=== PATIENT | male | born 1955 | race Caucasian/White ===

== ENCOUNTER 2024-02-17 02:50 | Inpatient (IN) | payer OTHER ==
[~2024-02-17] VITALS: Ht 172.7 cm; Wt 92.5 kg
[2024-02-17] VITALS (10 sets, daily range): BP systolic 130–162; PULSE 45–48; RESP 14–18; TEMP 96.6–98.5; O2SAT 94–98
[2024-02-17 04:00] LABS: BASOPHILS % (AUTO) 0.4 % (0.0-2.0); EOSINOPHILS # (AUTO) 0.4 K/uL (0.0-0.4); EOSINOPHILS % (AUTO) 3.8 % (0.0-4.0); HEMATOCRIT 43.3 % (36-54); HEMOGLOBIN 14.4 g/dL (14.0-18.0); LYMPHOCYTES # (AUTO) 2.5 K/uL (1.0-5.5); LYMPHOCYTES % (AUTO) 23.5 % (20.5-51.5); MEAN CORPUSCULAR HEMOGLOBIN 30 pg (27-31); MEAN CORPUSCULAR HGB CONC 33 % (32-36); MEAN CORPUSCULAR VOLUME 89 fL (79.0-98.0); MONOCYTES # (AUTO) 0.5 K/uL (0.0-1.0); MONOCYTES % (AUTO) 4.9 % (1.7-9.3); NEUTROPHILS # (AUTO) 7.1 K/uL (1.8-7.7); NEUTROPHILS % (AUTO) 67.4 % (40.0-70.0); PLATELET COUNT (AUTO) 224 K/uL (130-430); RED BLOOD CELL COUNT(AUTO) 4.86 MIL/uL (4.2-6.2); WHITE BLOOD COUNT (AUTO) 10.5 K/uL (4.8-10.8)
[2024-02-17 04:16] LABS: ALANINE AMINOTRANSFERASE 17 U/L (12-78); ALBUMIN 3.7 g/dL (3.4-4.8); ANION GAP 11 (5-15); ASPARTATE AMINOTRANSFERASE 18 U/L (10-37); BILIRUBIN,DIRECT 0.1 mg/dL (0.0-0.3); CALCIUM 8.9 mg/dL (8.4-11.0); CARBON DIOXIDE 25 mmol/L (23-29); CHLORIDE 104 mmol/L (98-107); CREATININE 1.37 mg/dL (0.55-1.30); GFR AFRICAN AMERICAN 66 mL/min (>90); GLUCOSE 151 mg/dL (74-106); POTASSIUM 4.3 mmol/L (3.5-5.1); SODIUM SERUM 140 mmol/L (136-145); TOTAL BILIRUBIN 0.4 mg/dL (0.0-1.0); TOTAL PROTEIN, SERUM 7.8 g/dL (6.4-8.3); UREA NITROGEN, BLOOD 21 mg/dL (8-21)
[2024-02-17 04:21] LABS: GFR NON AFRICAN-AMERICAN 55 mL/min (>90)
[2024-02-17] MEDS ORDERED: LEVE1000 PO (06:01)
[2024-02-17] MEDS ORDERED: LIP40 PO (06:01)
[2024-02-17] MEDS ORDERED: NIFE-129 PO (06:01)
[2024-02-17] MEDS ORDERED: LOSA-415 PO (06:01)
[2024-02-17] MEDS ORDERED: CLOP75TA32 PO (06:01)
[2024-02-17] MEDS ORDERED: METF-379 PO (06:01)
[2024-02-17 08:49] LABS: CHOLESTEROL 106 mg/dL (<200); HDL CHOLESTEROL 47 mg/dL (>45); TRIGLYCERIDES 44 mg/dL (30-150)
[2024-02-17] MEDS: CLOPIDOGREL BISULFATE 75 MG TABLET PO ONE (09:54)
[2024-02-17] MEDS: levETIRAcetam 500 MG TABLET PO ONE (09:55)
[2024-02-17] MEDS: metFORMIN HCL 500 MG TABLET PO SCH (09:55)
[2024-02-17] MEDS: ATORVASTATIN 20 MG TABLET PO ONE (09:55)
[2024-02-17] MEDS: LOSARTAN POTASSIUM 50 MG TABLET (COZAAR) PO ONE (09:57)
[2024-02-17] MEDS: THEOPHYLLINE ANHYDROUS 80 MG/15 ML UDC PO SCH (10:27)
[2024-02-17] MEDS: levETIRAcetam 500 MG TABLET PO SCH (22:00)
[2024-02-18] VITALS (16 sets, daily range): BP systolic 153–186; PULSE 43–108; RESP 12–48; TEMP 97.4–98.6; O2SAT 89–100
[2024-02-18] MEDS: hydrALAZINE HCL 20 MG/ML VIAL IVP ONE ×2 (00:27→21:47)
[2024-02-18] MEDS: CLOPIDOGREL BISULFATE 75 MG TABLET PO SCH (08:45)
[2024-02-18] MEDS: ATORVASTATIN 20 MG TABLET PO SCH (08:46)
[2024-02-18] MEDS: LOSARTAN POTASSIUM 50 MG TABLET (COZAAR) PO SCH (08:48)
[2024-02-18] MEDS: hydrALAZINE HCL 25 MG TABLET PO SCH (09:00)
[2024-02-18] MEDS: THEOPHYLLINE ANHYDROUS 80 MG/15 ML UDC PO SCH (10:35)
[2024-02-18] MEDS: hydrALAZINE HCL 25 MG TABLET PO ONE (14:09)
[2024-02-18] MEDS: hydrALAZINE HCL 20 MG/ML VIAL ONE (20:31)
[2024-02-18] MEDS ORDERED: levETIRAcetam 1,000 MG in NS 100 ML IV SCH (21:00)
[2024-02-18] MEDS ORDERED: ENALAPRILAT DIHYDRATE 1.25 MG/ML VIAL IVP PRN (21:00)
[2024-02-18] MEDS: LORazepam 2 MG/ML VIAL IVP ONE (21:15)
[2024-02-18] MEDS ORDERED: iohexoL 350 mgI/mL, 100 ML INFUS..BTL IV ONE (21:16)
[2024-02-18 21:39] LABS: BASOPHILS # (AUTO) 0.4 K/uL (0.0-0.2); EOSINOPHILS # (AUTO) 0.1 K/uL (0.0-0.4); EOSINOPHILS % (AUTO) 0.7 % (0.0-4.0); HEMATOCRIT 44.8 % (36-54); HEMOGLOBIN 15.1 g/dL (14.0-18.0); LYMPHOCYTES % (AUTO) 14.2 % (20.5-51.5); MEAN CORPUSCULAR HEMOGLOBIN 30 pg (27-31); MEAN CORPUSCULAR HGB CONC 34 % (32-36); MEAN CORPUSCULAR VOLUME 88 fL (79.0-98.0); MONOCYTES # (AUTO) 0.5 K/uL (0.0-1.0); MONOCYTES % (AUTO) 3.7 % (1.7-9.3); NEUTROPHILS # (AUTO) 11.3 K/uL (1.8-7.7); NEUTROPHILS % (AUTO) 78.4 % (40.0-70.0); PLATELET COUNT (AUTO) 254 K/uL (130-430); RED BLOOD CELL COUNT(AUTO) 5.07 MIL/uL (4.2-6.2); RED CELL DISTRIBUTION WIDTH 14.1 % (9.0-15.0); WHITE BLOOD COUNT (AUTO) 14.4 K/uL (4.8-10.8)
[2024-02-18] MEDS ORDERED: levETIRAcetam 4,500 MG in NS 100 ML IV ONE (21:45)
[2024-02-18] MEDS: LORazepam 2 MG/ML VIAL ONE (21:48)
[2024-02-18 21:58] LABS: CALCIUM 9.1 mg/dL (8.4-11.0); CREATININE 1.08 mg/dL (0.55-1.30); POTASSIUM 3.5 mmol/L (3.5-5.1)
[2024-02-18] MEDS: PIPERACILLIN/TAZOBACTAM 3.375 GM/VIAL (ZOSYN) IV ONE (22:01)
[2024-02-18 22:14] LABS: PROTHROMBIN TIME 10.8 SECS (9.5-12.5)
[2024-02-19] VITALS (33 sets, daily range): BP systolic 133–200; PULSE 42–99; RESP 10–38; TEMP 98.1–100.6; O2SAT 90–98
[2024-02-19] MEDS ORDERED: COMMUNICATION ORDER XX ONE (01:00)
[2024-02-19] MEDS: hydrALAZINE HCL 20 MG/ML VIAL IVP PRN (01:03)
[2024-02-19] MEDS: NACL 0.9% 1,000 ML IV SCH (01:32)
[2024-02-19] MEDS: levETIRAcetam 1,000 MG IV BAG 100 ML IV SCH (01:33)
[2024-02-19] MEDS: ATROPINE SULFATE 1 MG/10 ML SYRINGE IVP ONE (01:34)
[2024-02-19] MEDS: ONDANSETRON HCL 4 MG/2 ML VIAL IVP PRN (04:37)
[2024-02-19] MEDS ORDERED: ENALAPRILAT DIHYDRATE 1.25 MG/ML VIAL IVP PRN (05:45)
[2024-02-19 06:50] LABS: BASOPHILS % (AUTO) 0.1 % (0.0-2.0); HEMATOCRIT 44.1 % (36-54); HEMOGLOBIN 14.6 g/dL (14.0-18.0); LYMPHOCYTES # (AUTO) 0.2 K/uL (1.0-5.5); LYMPHOCYTES % (AUTO) 1.5 % (20.5-51.5); MEAN CORPUSCULAR HEMOGLOBIN 29 pg (27-31); MEAN CORPUSCULAR HGB CONC 33 % (32-36); MEAN CORPUSCULAR VOLUME 89 fL (79.0-98.0); MONOCYTES # (AUTO) 0.4 K/uL (0.0-1.0); MONOCYTES % (AUTO) 2.4 % (1.7-9.3); NEUTROPHILS # (AUTO) 14.3 K/uL (1.8-7.7); PLATELET COUNT (AUTO) 256 K/uL (130-430); RED BLOOD CELL COUNT(AUTO) 4.96 MIL/uL (4.2-6.2); RED CELL DISTRIBUTION WIDTH 14.3 % (9.0-15.0); WHITE BLOOD COUNT (AUTO) 14.9 K/uL (4.8-10.8)
[2024-02-19 07:22] LABS: ALBUMIN 3.6 g/dL (3.4-4.8); CREATININE 1.26 mg/dL (0.55-1.30); POTASSIUM 3.9 mmol/L (3.5-5.1); TOTAL BILIRUBIN 0.4 mg/dL (0.0-1.0); TOTAL PROTEIN, SERUM 7.6 g/dL (6.4-8.3)
[2024-02-19] MEDS: NIFEdipine 30 MG TAB.ER.24 PO SCH (09:29)
[2024-02-19] MEDS: APIXABAN 2.5 MG TABLET PO SCH (10:00)
[2024-02-19 12:03] LABS: BILIRUBIN,URINE NEGATIVE (NEGATIVE); BLOOD, URINE 1+ (NEGATIVE); CLARITY/URINE CLEAR (CLEAR); COLOR,URINE YELLOW (YELLOW); GLUCOSE,URINE TRACE (NEGATIVE); KETONES,URINE 1+ (NEGATIVE); LEUKOCYTE ESTERASE ,URINE NEGATIVE (NEGATIVE); NITRITE, URINE NEGATIVE (NEGATIVE); PROTEIN URINE 2+ (NEGATIVE); UROBILINOGEN,URINE 0.2 (0.2-1.0)
[2024-02-19 12:30] LABS: BACTERIA,URINE None Seen /HPF (None Seen); WBC,URINE 0-3 /HPF (0-3)
[2024-02-19] MEDS ORDERED: *LOVENOX 1MG/KG Q12H/PHARMACY XX SCH (14:15)
[2024-02-19] MEDS: ENOXAPARIN SODIUM 100 MG/ML SYRINGE SUBCUT ONE (17:34)
[2024-02-19] MEDS: INSULIN REGULAR, HUMAN 100 UNITS/ML, 3 ML VIAL (humuLIN R) SUBCUT SCH (17:35)
[2024-02-19] MEDS: levETIRAcetam 500 MG in NS 100 ML IV SCH (20:23)
[2024-02-19] MEDS: DOCUSATE SODIUM 100 MG CAPSULE PO SCH (20:28)
[2024-02-19] MEDS ORDERED: levETIRAcetam 1,000 MG in NS 100 ML IV SCH (21:00)
[2024-02-19] MEDS: ACETAMINOPHEN 650 MG SUPP.RECT RC PRN (21:13)
[2024-02-19] MEDS: PIPERACILLIN/TAZO 4.5 GM in D5W 100 ML IV SCH (21:14)
[2024-02-19] MEDS: PIPERACILLIN/TAZOBACTAM 4.5 GM/VIAL (ZOSYN) IV ONE (21:14)
[2024-02-19] MEDS: METOCLOPRAMIDE HCL 10 MG/2 ML VIAL IVP SCH (22:35)
[2024-02-20] MEDS ORDERED: ENOXAPARIN SODIUM 100 MG/ML SYRINGE SUBCUT SCH (05:00)
== END 2024-02-19 23:00 | disposition short-term general hospital (02) | DRG 308 ==
LOC: SED 02:50 → STU 05:37 → SIC 02-18 22:00
PROVIDERS: ADMIT Family Medicine; ATTEND Family Medicine
PROC: 4A00X4Z Measurement of Central Nervous Electrical Activity, External Approach (ICD-10-PCS; principal; 2024-02-17)
DX: I44.1 Atrioventricular block, second degree (principal); I63.9 Cerebral infarction, unspecified; I69.354 Hemiplegia and hemiparesis following cerebral infarction affecting left non-dominant side; M21.372 Foot drop, left foot; Z20.822 Contact with and (suspected) exposure to COVID-19; I11.9 Hypertensive heart disease without heart failure; I25.10 Atherosclerotic heart disease of native coronary artery without angina pectoris; G40.909 Epilepsy, unspecified, not intractable, without status epilepticus; E11.40 Type 2 diabetes mellitus with diabetic neuropathy, unspecified; E78.5 Hyperlipidemia, unspecified; Z90.49 Acquired absence of other specified parts of digestive tract; Z79.82 Long term (current) use of aspirin; Z79.899 Other long term (current) drug therapy; Z79.84 Long term (current) use of oral hypoglycemic drugs
CPT/HCPCS: 36415; 70450; 70496; 70498; 71045; 80048; 80053; 80061; 80076; 81000; 81001; 81015; 82948; 83037; 83605; 83880; 84443; 84484; 85025; 85379; 85610; 85730; 93005; 93306; 93880; 95816; 97110-GP; 97116-GP; 97163-GP; 97530-GP; 99285; G0378; J0360; J0461; J1650; J1953; J2060; J2405; J2543; J2765; J7060; Q9967